=== PATIENT | male | born 1965 | race Caucasian/White ===

== ENCOUNTER 2018-07-14 14:17 | Outpatient (CLI) | payer OTHER ==
--- NOTE | 2018-07-14 21:40 | MRI Report ---
Procedure Date: 07/14/2018 Accession Number: [id number] / [id number] Procedure: MRI - Brachial Plexus W/O CPT Code: FULL RESULT: EXAM: MRI BRACHIAL PLEXUS WITHOUT CONTRAST COMPARISON: None. CLINICAL HISTORY: Radiculopathy, cervical region. TECHNIQUE: Multiplanar multisequence imaging is performed through the brachial plexus without contrast. FINDINGS: No discrete masses. There is qualitative abnormal signal involving predominantly the right C8 nerve root, (701,8); 701, 6). No discrete abnormal signal involving the cord. No discrete masses. No retropharyngeal fluid. Postcontrast imaging would be very helpful, to assess for active inflammation. IMPRESSION: Qualitative abnormal signal involving predominantly the right C8 nerve root.
== END 2018-07-14 14:18 | disposition home or self-care (01) ==
LOC: DI 14:17
PROVIDERS: ATTEND General Practice
DX: M54.12 Radiculopathy, cervical region (principal)
CPT/HCPCS: 71550